=== PATIENT | female | born 1925 | race Caucasian/White ===

== ENCOUNTER 2017-09-24 22:43 | Inpatient (IN) | payer OTHER ==
[~2017-09-24] VITALS: Ht 167.6 cm; Wt 54.2 kg
[2017-09-24 22:43] VITALS: BP_SYST 154
[2017-09-24] MEDS ORDERED: DULR10 RC (23:23)
[2017-09-24] MEDS ORDERED: FURO-149 PO (23:23)
[2017-09-24] MEDS ORDERED: LOSA100T11 PO (23:23)
[2017-09-24] MEDS ORDERED: ONDA4TAB22 PO (23:23)
[2017-09-24] MEDS ORDERED: LEVO100T PO (23:23)
[2017-09-24] MEDS ORDERED: DOCU-144 PO (23:23)
[2017-09-24] MEDS ORDERED: MAGN400O4 PO (23:23)
[2017-09-24] MEDS ORDERED: POTA-118 PO (23:23)
[2017-09-24] MEDS ORDERED: ACET325T53 PO (23:23)
[2017-09-24] MEDS ORDERED: OXYB10TA4 PO (23:23)
[2017-09-24] MEDS ORDERED: NOR10 PO (23:23)
[2017-09-24] MEDS ORDERED: NACL 0.9% 1,000 ML IV ONE (23:29)
[2017-09-24] MEDS ORDERED: ONDANSETRON HCL 4 MG/2 ML VIAL IVP ONE (23:30)
[2017-09-25 00:23] LABS: BASOPHILS % (AUTO) 0.3 % (0.0-2.0); HEMATOCRIT 44.3 % (36-48); HEMOGLOBIN 14.9 g/dL (12.0-16.0); LYMPHOCYTES # (AUTO) 0.4 K/uL (1.0-5.5); LYMPHOCYTES % (AUTO) 4.5 % (20.5-51.5); MEAN CORPUSCULAR HEMOGLOBIN 30 pg (27-31); MEAN CORPUSCULAR HGB CONC 34 % (32-36); MEAN CORPUSCULAR VOLUME 89 fL (79.0-98.0); MONOCYTES # (AUTO) 0.6 K/uL (0.0-1.0); MONOCYTES % (AUTO) 7.7 % (1.7-9.3); NEUTROPHILS # (AUTO) 7.4 K/uL (1.8-7.7); NEUTROPHILS % (AUTO) 87.5 % (40.0-70.0); PLATELET COUNT (AUTO) 202 K/uL (130-430); RED BLOOD CELL COUNT(AUTO) 4.96 MIL/uL (4.2-6.2); RED CELL DISTRIBUTION WIDTH 13.8 % (9.0-15.0); WHITE BLOOD COUNT (AUTO) 8.4 K/uL (4.8-10.8)
[2017-09-25 00:30] LABS: ANION GAP 11 (5-15); CALCIUM 9.4 mg/dL (8.4-11.0); CHLORIDE 93 mmol/L (98-107); CREATININE 0.69 mg/dL (0.55-1.30); GLUCOSE 151 mg/dL (70-99); POTASSIUM 3.5 mmol/L (3.5-5.1); SODIUM SERUM 132 mmol/L (136-145); UREA NITROGEN, BLOOD 17 mg/dL (8-21)
[2017-09-25 00:32] LABS: PROTHROMBIN TIME 9.7 SECS (9.5-12.5)
[2017-09-25 00:37] LABS: ALANINE AMINOTRANSFERASE 13 U/L (12-78); ALBUMIN 3.7 g/dL (3.4-4.8); AMYLASE 79 U/L (0-100); ASPARTATE AMINOTRANSFERASE 16 U/L (10-37); LIPASE 106 U/L (73-393); TOTAL BILIRUBIN 0.4 mg/dL (0.0-1.0)
[2017-09-25 01:19] LABS: BILIRUBIN,URINE NEGATIVE (NEGATIVE); BLOOD, URINE NEGATIVE (NEGATIVE); CLARITY/URINE SL HAZY (CLEAR); COLOR,URINE YELLOW (YELLOW); GLUCOSE,URINE NEGATIVE (NEGATIVE); KETONES,URINE NEGATIVE (NEGATIVE); LEUKOCYTE ESTERASE ,URINE NEGATIVE (NEGATIVE); NITRITE, URINE NEGATIVE (NEGATIVE); PROTEIN URINE NEGATIVE (NEGATIVE); UROBILINOGEN,URINE 0.2 (0.2-1.0)
[2017-09-25] MEDS ORDERED: ONDANSETRON HCL 4 MG/2 ML VIAL IVP ONE (02:00)
[2017-09-25] MEDS ORDERED: NACL 0.9% 1,000 ML IV ONE (02:30)
[2017-09-25] MEDS ORDERED: LABETALOL 100 MG/ 20ML VIAL IVP PRN (02:45)
[2017-09-25] MEDS ORDERED: MORPHINE 2 MG/ML INJ. SYRINGE IVP PRN (02:45)
[2017-09-25 03:20] VITALS: BP_SYST 140
[2017-09-25 03:35] VITALS: BP_SYST 140
[2017-09-25] MEDS ORDERED: LEVOFLOXACIN 500 MG/D5W 100 ML IV ONE (03:57)
[2017-09-25] MEDS ORDERED: metroNIDAZOLE 500 mg/NS 100 ML IV ONE (03:57)
[2017-09-25] MEDS: D5LR 1,000 ML IV SCH ×2 (04:04→14:42)
[2017-09-25] MEDS ORDERED: LEVOFLOXACIN 500 MG/D5W 100 ML IV SCH (05:00)
[2017-09-25] MEDS: metroNIDAZOLE 500 mg/NS 100 ML IV SCH ×3 (05:12→21:51)
[2017-09-25] MEDS ORDERED: LEVOFLOXACIN 250 MG/D5W 50 ML IV ONE (05:32)
[2017-09-25] MEDS: ONDANSETRON HCL 4 MG/2 ML VIAL IVP PRN ×4 (06:32→19:29)
[2017-09-25 07:55] VITALS: BP_SYST 128
[2017-09-25] MEDS ORDERED: ACETAMINOPHEN 650 MG SUPP.RECT RC PRN ×2 (10:45→11:15)
[2017-09-25] MEDS ORDERED: BISACODYL 10 MG/SUPPOSITORY RC PRN (10:45)
[2017-09-25] MEDS ORDERED: BISACODYL 10 MG/SUPPOSITORY RC ONE (10:45)
[2017-09-25] MEDS ORDERED: ACETAMINOPHEN 325 MG TABLET PO PRN (11:15)
[2017-09-25 12:35] VITALS: BP_SYST 130
[2017-09-25] MEDS ORDERED: GASTROGRAFIN 120 ML ONE (13:27)
[2017-09-25 16:35] VITALS: BP_SYST 149
[2017-09-25 20:00] VITALS: BP_SYST 150
[2017-09-25] MEDS: METOCLOPRAMIDE HCL 10 MG/2 ML VIAL IVP PRN (20:25)
[2017-09-26 00:56] VITALS: BP_SYST 139
[2017-09-26] MEDS: D5LR 1,000 ML IV SCH ×2 (03:15→14:56)
[2017-09-26] MEDS ORDERED: LEVOFLOXACIN 250 MG/D5W 50 ML IV SCH (05:00)
[2017-09-26] MEDS: metroNIDAZOLE 500 mg/NS 100 ML IV SCH ×3 (05:58→21:33)
[2017-09-26 06:42] LABS: ALANINE AMINOTRANSFERASE 10 U/L (12-78); ALBUMIN 2.5 g/dL (3.4-4.8); ANION GAP 5 (5-15); ASPARTATE AMINOTRANSFERASE 13 U/L (10-37); CALCIUM 8.3 mg/dL (8.4-11.0); CHLORIDE 106 mmol/L (98-107); CREATININE 0.62 mg/dL (0.55-1.30); GLUCOSE 127 mg/dL (70-99); SODIUM SERUM 138 mmol/L (136-145); TOTAL BILIRUBIN 0.4 mg/dL (0.0-1.0); UREA NITROGEN, BLOOD 13 mg/dL (8-21)
[2017-09-26 07:01] LABS: BASOPHILS % (AUTO) 0.1 % (0.0-2.0); EOSINOPHILS % (AUTO) 0.2 % (0.0-4.0); HEMATOCRIT 34.5 % (36-48); HEMOGLOBIN 11.9 g/dL (12.0-16.0); LYMPHOCYTES # (AUTO) 0.5 K/uL (1.0-5.5); LYMPHOCYTES % (AUTO) 6.6 % (20.5-51.5); MEAN CORPUSCULAR HEMOGLOBIN 31 pg (27-31); MEAN CORPUSCULAR HGB CONC 35 % (32-36); MEAN CORPUSCULAR VOLUME 91 fL (79.0-98.0); MONOCYTES # (AUTO) 0.6 K/uL (0.0-1.0); MONOCYTES % (AUTO) 7.3 % (1.7-9.3); NEUTROPHILS # (AUTO) 6.7 K/uL (1.8-7.7); NEUTROPHILS % (AUTO) 85.8 % (40.0-70.0); PLATELET COUNT (AUTO) 151 K/uL (130-430); WHITE BLOOD COUNT (AUTO) 7.8 K/uL (4.8-10.8)
[2017-09-26 07:02] LABS: POTASSIUM 2.4 mmol/L (3.5-5.1)
[2017-09-26 07:35] VITALS: BP_SYST 134
[2017-09-26] MEDS ORDERED: POTASSIUM CHLORIDE 40 MEQ, LIDOCAINE JECT 2% PF 100 MG 50 MG in NS 250 ML IV ONE ×2 (08:15→12:15)
[2017-09-26] MEDS: LEVOFLOXACIN 250 MG/D5W 50 ML IV SCH (08:19)
[2017-09-26] MEDS ORDERED: PANTOPRAZOLE SODIUM 40 MG/VIAL (PROTONIX) IVP ONE (13:30)
[2017-09-26 14:11] VITALS: BP_SYST 138
[2017-09-26 16:00] VITALS: BP_SYST 133
[2017-09-26 18:23] LABS: ANION GAP 5 (5-15); CALCIUM 8.3 mg/dL (8.4-11.0); CHLORIDE 107 mmol/L (98-107); CREATININE 0.55 mg/dL (0.55-1.30); GLUCOSE 116 mg/dL (70-99); POTASSIUM 3.8 mmol/L (3.5-5.1); SODIUM SERUM 137 mmol/L (136-145); UREA NITROGEN, BLOOD 15 mg/dL (8-21)
[2017-09-26 20:00] VITALS: BP_SYST 132
[2017-09-27 00:49] VITALS: BP_SYST 133
[2017-09-27] MEDS: D5LR 1,000 ML IV SCH ×2 (03:59→16:38)
[2017-09-27] MEDS: metroNIDAZOLE 500 mg/NS 100 ML IV SCH ×3 (05:10→21:14)
[2017-09-27 07:03] LABS: BASOPHILS % (AUTO) 0.4 % (0.0-2.0); EOSINOPHILS % (AUTO) 0.8 % (0.0-4.0); HEMOGLOBIN 12.1 g/dL (12.0-16.0); LYMPHOCYTES # (AUTO) 0.7 K/uL (1.0-5.5); LYMPHOCYTES % (AUTO) 14.2 % (20.5-51.5); MEAN CORPUSCULAR HEMOGLOBIN 31 pg (27-31); MEAN CORPUSCULAR HGB CONC 34 % (32-36); MEAN CORPUSCULAR VOLUME 91 fL (79.0-98.0); MONOCYTES # (AUTO) 0.6 K/uL (0.0-1.0); MONOCYTES % (AUTO) 12.4 % (1.7-9.3); NEUTROPHILS # (AUTO) 3.9 K/uL (1.8-7.7); NEUTROPHILS % (AUTO) 72.2 % (40.0-70.0); PLATELET COUNT (AUTO) 127 K/uL (130-430); RED BLOOD CELL COUNT(AUTO) 3.85 MIL/uL (4.2-6.2); RED CELL DISTRIBUTION WIDTH 13.7 % (9.0-15.0); WHITE BLOOD COUNT (AUTO) 5.2 K/uL (4.8-10.8)
[2017-09-27 07:04] LABS: ANION GAP 9 (5-15); CALCIUM 7.7 mg/dL (8.4-11.0); CHLORIDE 106 mmol/L (98-107); CREATININE 0.43 mg/dL (0.55-1.30); GLUCOSE 91 mg/dL (70-99); SODIUM SERUM 139 mmol/L (136-145); UREA NITROGEN, BLOOD 11 mg/dL (8-21)
[2017-09-27 08:00] VITALS: BP_SYST 130
[2017-09-27] MEDS: PANTOPRAZOLE SODIUM 40 MG/VIAL (PROTONIX) IVP SCH (08:21)
[2017-09-27] MEDS: LEVOFLOXACIN 250 MG/D5W 50 ML IV SCH (08:21)
[2017-09-27 12:00] VITALS: BP_SYST 133
[2017-09-27] MEDS: ONDANSETRON HCL 4 MG/2 ML VIAL IVP PRN (12:00)
[2017-09-27 16:00] VITALS: BP_SYST 131
[2017-09-27] MEDS: METOCLOPRAMIDE HCL 10 MG/2 ML VIAL IVP PRN (16:37)
[2017-09-27] MEDS ORDERED: POTASSIUM CHLORIDE 40 MEQ, LIDOCAINE JECT 2% PF 100 MG 50 MG in NS 250 ML IV ONE (17:00)
[2017-09-27 20:00] VITALS: BP_SYST 140
[2017-09-27] MEDS: MEGESTROL ACETATE 400 MG/10 ML UDC PO SCH (21:13)
[2017-09-28 01:10] VITALS: BP_SYST 123
[2017-09-28] MEDS: D5LR 1,000 ML IV SCH ×2 (05:13→15:57)
[2017-09-28] MEDS: metroNIDAZOLE 500 mg/NS 100 ML IV SCH (05:41)
[2017-09-28 06:25] LABS: BASOPHILS % (AUTO) 0.2 % (0.0-2.0); EOSINOPHILS # (AUTO) 0.1 K/uL (0.0-0.4); EOSINOPHILS % (AUTO) 2.3 % (0.0-4.0); HEMATOCRIT 33.7 % (36-48); HEMOGLOBIN 11.4 g/dL (12.0-16.0); LYMPHOCYTES # (AUTO) 0.7 K/uL (1.0-5.5); LYMPHOCYTES % (AUTO) 11.7 % (20.5-51.5); MEAN CORPUSCULAR HEMOGLOBIN 31 pg (27-31); MEAN CORPUSCULAR HGB CONC 34 % (32-36); MEAN CORPUSCULAR VOLUME 91 fL (79.0-98.0); MONOCYTES # (AUTO) 0.5 K/uL (0.0-1.0); MONOCYTES % (AUTO) 8.4 % (1.7-9.3); NEUTROPHILS # (AUTO) 4.8 K/uL (1.8-7.7); NEUTROPHILS % (AUTO) 77.4 % (40.0-70.0); PLATELET COUNT (AUTO) 137 K/uL (130-430); RED BLOOD CELL COUNT(AUTO) 3.72 MIL/uL (4.2-6.2); RED CELL DISTRIBUTION WIDTH 13.6 % (9.0-15.0); WHITE BLOOD COUNT (AUTO) 6.1 K/uL (4.8-10.8)
[2017-09-28 06:42] LABS: ANION GAP 7 (5-15); CALCIUM 7.5 mg/dL (8.4-11.0); CHLORIDE 104 mmol/L (98-107); CREATININE 0.44 mg/dL (0.55-1.30); GLUCOSE 99 mg/dL (70-99); SODIUM SERUM 136 mmol/L (136-145); UREA NITROGEN, BLOOD 6 mg/dL (8-21)
[2017-09-28 08:00] VITALS: BP_SYST 134
[2017-09-28] MEDS: PANTOPRAZOLE SODIUM 40 MG/VIAL (PROTONIX) IVP SCH (08:51)
[2017-09-28] MEDS: MEGESTROL ACETATE 400 MG/10 ML UDC PO SCH ×2 (08:51→21:16)
[2017-09-28] MEDS: LEVOFLOXACIN 250 MG/D5W 50 ML IV SCH (08:51)
[2017-09-28 11:55] VITALS: BP_SYST 139
[2017-09-28] MEDS ORDERED: POTASSIUM CHLORIDE 40 MEQ, LIDOCAINE JECT 2% PF 100 MG 50 MG in NS 250 ML IV ONE (12:45)
[2017-09-28] MEDS ORDERED: MAGNESIUM SULFATE 4 GM in D5W 250 ML IV ONE (14:00)
[2017-09-28] MEDS ORDERED: CHOLECALCIFEROL (VITAMIN D3) 2,000 UNIT TABLET PO SCH (14:00)
[2017-09-28] MEDS ORDERED: GASTROGRAFIN 120 ML ONE (14:01)
[2017-09-28] MEDS ORDERED: CHOLECALCIFEROL (VITAMIN D3) 2,000 UNIT TABLET PO ONE (14:15)
[2017-09-28 20:19] VITALS: BP_SYST 126
[2017-09-29 00:58] VITALS: BP_SYST 132
[2017-09-29 07:16] LABS: BASOPHILS % (AUTO) 0.1 % (0.0-2.0); EOSINOPHILS # (AUTO) 0.1 K/uL (0.0-0.4); EOSINOPHILS % (AUTO) 2.2 % (0.0-4.0); HEMATOCRIT 34.7 % (36-48); HEMOGLOBIN 11.7 g/dL (12.0-16.0); LYMPHOCYTES # (AUTO) 0.7 K/uL (1.0-5.5); LYMPHOCYTES % (AUTO) 11.1 % (20.5-51.5); MEAN CORPUSCULAR HEMOGLOBIN 30 pg (27-31); MEAN CORPUSCULAR HGB CONC 34 % (32-36); MEAN CORPUSCULAR VOLUME 89 fL (79.0-98.0); MONOCYTES # (AUTO) 0.8 K/uL (0.0-1.0); MONOCYTES % (AUTO) 12.9 % (1.7-9.3); NEUTROPHILS # (AUTO) 4.4 K/uL (1.8-7.7); NEUTROPHILS % (AUTO) 73.7 % (40.0-70.0); PLATELET COUNT (AUTO) 155 K/uL (130-430); RED BLOOD CELL COUNT(AUTO) 3.91 MIL/uL (4.2-6.2); RED CELL DISTRIBUTION WIDTH 13.7 % (9.0-15.0)
[2017-09-29 07:39] LABS: ANION GAP 6 (5-15); CHLORIDE 109 mmol/L (98-107); CREATININE 0.41 mg/dL (0.55-1.30); GLUCOSE 93 mg/dL (70-99); POTASSIUM 3.1 mmol/L (3.5-5.1); SODIUM SERUM 140 mmol/L (136-145); UREA NITROGEN, BLOOD 5 mg/dL (8-21)
[2017-09-29 07:51] LABS: CALCIUM 6.9 mg/dL (8.4-11.0)
[2017-09-29 08:00] VITALS: BP_SYST 144
[2017-09-29] MEDS: MEGESTROL ACETATE 400 MG/10 ML UDC PO SCH ×2 (08:08→20:51)
[2017-09-29] MEDS: CHOLECALCIFEROL (VITAMIN D3) 2,000 UNIT TABLET PO SCH (08:08)
[2017-09-29] MEDS: PANTOPRAZOLE SODIUM 40 MG/VIAL (PROTONIX) IVP SCH (08:08)
[2017-09-29] MEDS: D5LR 1,000 ML IV SCH ×2 (09:30→23:32)
[2017-09-29] MEDS ORDERED: CALCIUM CARBONATE 500 MG/ TAB.CHEW PO PRN (12:00)
[2017-09-29] MEDS ORDERED: MAGNESIUM OXIDE 400 MG TABLET PO ONE (12:00)
[2017-09-29] MEDS ORDERED: POTASSIUM CHLORIDE 20 MEQ TAB.PRT.SR PO ONE (12:00)
[2017-09-29] MEDS ORDERED: CHOLECALCIFEROL (VITAMIN D3) 2,000 UNIT TABLET PO SCH (12:00)
[2017-09-29 12:25] VITALS: BP_SYST 135
[2017-09-29 16:30] VITALS: BP_SYST 133
[2017-09-29 17:15] LABS: BILIRUBIN,URINE NEGATIVE (NEGATIVE); BLOOD, URINE NEGATIVE (NEGATIVE); CLARITY/URINE CLEAR (CLEAR); COLOR,URINE YELLOW (YELLOW); GLUCOSE,URINE NEGATIVE (NEGATIVE); KETONES,URINE NEGATIVE (NEGATIVE); LEUKOCYTE ESTERASE ,URINE NEGATIVE (NEGATIVE); NITRITE, URINE NEGATIVE (NEGATIVE); PROTEIN URINE NEGATIVE (NEGATIVE); UROBILINOGEN,URINE 0.2 (0.2-1.0)
[2017-09-29 18:31] LABS: RBC,URINE 0-3 /HPF (0-3)
[2017-09-29 18:32] LABS: BACTERIA,URINE MODERATE /HPF (None Seen); MUCUS,URINE None Seen /LPF (None Seen)
[2017-09-29 20:00] VITALS: BP_SYST 123
[2017-09-29] MEDS: POTASSIUM CHLORIDE 20 MEQ TAB.PRT.SR PO SCH (20:51)
[2017-09-29] MEDS: MAGNESIUM OXIDE 400 MG TABLET PO SCH (20:51)
[2017-09-30 01:09] VITALS: BP_SYST 127
[2017-09-30 06:22] LABS: BASOPHILS % (AUTO) 0.4 % (0.0-2.0); EOSINOPHILS # (AUTO) 0.1 K/uL (0.0-0.4); EOSINOPHILS % (AUTO) 2.4 % (0.0-4.0); HEMATOCRIT 33.8 % (36-48); HEMOGLOBIN 11.7 g/dL (12.0-16.0); LYMPHOCYTES # (AUTO) 0.6 K/uL (1.0-5.5); LYMPHOCYTES % (AUTO) 13.1 % (20.5-51.5); MEAN CORPUSCULAR HEMOGLOBIN 31 pg (27-31); MEAN CORPUSCULAR HGB CONC 35 % (32-36); MEAN CORPUSCULAR VOLUME 89 fL (79.0-98.0); MONOCYTES # (AUTO) 0.6 K/uL (0.0-1.0); MONOCYTES % (AUTO) 12.5 % (1.7-9.3); NEUTROPHILS # (AUTO) 3.5 K/uL (1.8-7.7); NEUTROPHILS % (AUTO) 71.6 % (40.0-70.0); PLATELET COUNT (AUTO) 155 K/uL (130-430); RED BLOOD CELL COUNT(AUTO) 3.78 MIL/uL (4.2-6.2); RED CELL DISTRIBUTION WIDTH 13.8 % (9.0-15.0); WHITE BLOOD COUNT (AUTO) 4.8 K/uL (4.8-10.8)
[2017-09-30 06:29] LABS: ALANINE AMINOTRANSFERASE 8 U/L (12-78); ALBUMIN 1.9 g/dL (3.4-4.8); ANION GAP 4 (5-15); ASPARTATE AMINOTRANSFERASE 12 U/L (10-37); CALCIUM 7.7 mg/dL (8.4-11.0); CHLORIDE 104 mmol/L (98-107); CREATININE 0.44 mg/dL (0.55-1.30); GLUCOSE 106 mg/dL (70-99); POTASSIUM 4.4 mmol/L (3.5-5.1); SODIUM SERUM 132 mmol/L (136-145); TOTAL BILIRUBIN 0.2 mg/dL (0.0-1.0); UREA NITROGEN, BLOOD 10 mg/dL (8-21)
[2017-09-30] MEDS: MEGESTROL ACETATE 400 MG/10 ML UDC PO SCH ×2 (09:51→20:41)
[2017-09-30] MEDS: PANTOPRAZOLE SODIUM 40 MG/VIAL (PROTONIX) IVP SCH (09:51)
[2017-09-30] MEDS: POTASSIUM CHLORIDE 20 MEQ TAB.PRT.SR PO SCH ×2 (09:52→20:41)
[2017-09-30] MEDS: CHOLECALCIFEROL (VITAMIN D3) 2,000 UNIT TABLET PO SCH (09:52)
[2017-09-30] MEDS: MAGNESIUM OXIDE 400 MG TABLET PO SCH ×2 (09:52→20:41)
[2017-09-30] MEDS: D5LR 1,000 ML IV SCH ×2 (09:58→09:59)
[2017-09-30] MEDS ORDERED: LEVOFLOXACIN 250 MG/D5W 50 ML IV ONE (11:30)
[2017-09-30 12:47] VITALS: BP_SYST 133
[2017-09-30 16:24] VITALS: BP_SYST 143
[2017-09-30 20:00] VITALS: BP_SYST 132
[2017-10-01 00:34] VITALS: BP_SYST 137
[2017-10-01] MEDS: D5LR 1,000 ML IV SCH ×2 (02:01→19:52)
[2017-10-01 08:00] VITALS: BP_SYST 129
[2017-10-01] MEDS: MEGESTROL ACETATE 400 MG/10 ML UDC PO SCH ×2 (09:56→21:31)
[2017-10-01] MEDS: PANTOPRAZOLE SODIUM 40 MG/VIAL (PROTONIX) IVP SCH (09:56)
[2017-10-01] MEDS: POTASSIUM CHLORIDE 20 MEQ TAB.PRT.SR PO SCH ×2 (09:56→21:39)
[2017-10-01] MEDS: LEVOFLOXACIN 250 MG/D5W 50 ML IV SCH (09:56)
[2017-10-01] MEDS: CHOLECALCIFEROL (VITAMIN D3) 2,000 UNIT TABLET PO SCH (09:57)
[2017-10-01] MEDS: MAGNESIUM OXIDE 400 MG TABLET PO SCH ×2 (09:57→21:31)
[2017-10-01 12:47] VITALS: BP_SYST 124
[2017-10-01 16:49] VITALS: BP_SYST 120
[2017-10-01 19:00] VITALS: BP_SYST 143
[2017-10-01 20:00] VITALS: BP_SYST 143
[2017-10-02] VITALS: BP_SYST 134
[2017-10-02] MEDS: D5LR 1,000 ML IV SCH ×2 (06:07→23:00)
[2017-10-02 06:58] LABS: ANION GAP 8 (5-15); CALCIUM 8.4 mg/dL (8.4-11.0); CHLORIDE 100 mmol/L (98-107); CREATININE 0.54 mg/dL (0.55-1.30); GLUCOSE 94 mg/dL (70-99); POTASSIUM 4.6 mmol/L (3.5-5.1); SODIUM SERUM 130 mmol/L (136-145); UREA NITROGEN, BLOOD 17 mg/dL (8-21)
[2017-10-02 08:00] VITALS: BP_SYST 125
[2017-10-02] MEDS: CHOLECALCIFEROL (VITAMIN D3) 2,000 UNIT TABLET PO SCH (09:59)
[2017-10-02] MEDS: POTASSIUM CHLORIDE 20 MEQ TAB.PRT.SR PO SCH ×2 (09:59→22:07)
[2017-10-02] MEDS: LEVOFLOXACIN 250 MG/D5W 50 ML IV SCH (10:00)
[2017-10-02] MEDS: MEGESTROL ACETATE 400 MG/10 ML UDC PO SCH ×2 (10:00→22:06)
[2017-10-02] MEDS: MAGNESIUM OXIDE 400 MG TABLET PO SCH ×2 (10:00→22:07)
[2017-10-02] MEDS: PANTOPRAZOLE SODIUM 40 MG/VIAL (PROTONIX) IVP SCH (10:00)
[2017-10-02 12:15] VITALS: BP_SYST 129
[2017-10-02 16:15] VITALS: BP_SYST 122
[2017-10-03] VITALS: BP_SYST 119
[2017-10-03 05:38] VITALS: BP_SYST 123
[2017-10-03 08:00] VITALS: BP_SYST 143
[2017-10-03] MEDS: LEVOFLOXACIN 250 MG/D5W 50 ML IV SCH (09:21)
[2017-10-03] MEDS: PANTOPRAZOLE SODIUM 40 MG/VIAL (PROTONIX) IVP SCH (09:22)
[2017-10-03] MEDS: CHOLECALCIFEROL (VITAMIN D3) 2,000 UNIT TABLET PO SCH (09:22)
[2017-10-03] MEDS: POTASSIUM CHLORIDE 20 MEQ TAB.PRT.SR PO SCH ×2 (09:22→20:26)
[2017-10-03] MEDS: MEGESTROL ACETATE 400 MG/10 ML UDC PO SCH ×2 (09:22→20:25)
[2017-10-03] MEDS: MAGNESIUM OXIDE 400 MG TABLET PO SCH ×2 (09:22→20:26)
[2017-10-03 11:49] VITALS: BP_SYST 135
[2017-10-03 16:00] VITALS: BP_SYST 128
[2017-10-03] MEDS: D5LR 1,000 ML IV SCH (17:37)
[2017-10-04 02:14] VITALS: BP_SYST 119
[2017-10-04] MEDS: PANTOPRAZOLE SODIUM 40 MG/VIAL (PROTONIX) IVP SCH (09:21)
[2017-10-04] MEDS: MAGNESIUM OXIDE 400 MG TABLET PO SCH ×2 (09:21→20:22)
[2017-10-04] MEDS: POTASSIUM CHLORIDE 20 MEQ TAB.PRT.SR PO SCH ×2 (09:21→20:22)
[2017-10-04] MEDS: CHOLECALCIFEROL (VITAMIN D3) 2,000 UNIT TABLET PO SCH (09:21)
[2017-10-04] MEDS: LEVOFLOXACIN 250 MG/D5W 50 ML IV SCH (09:21)
[2017-10-04] MEDS: MEGESTROL ACETATE 400 MG/10 ML UDC PO SCH ×2 (09:22→20:22)
[2017-10-04] MEDS: D5LR 1,000 ML IV SCH (11:58)
[2017-10-04 12:42] VITALS: BP_SYST 128
[2017-10-04 16:10] VITALS: BP_SYST 121
[2017-10-04 20:05] VITALS: BP_SYST 126
[2017-10-05 00:51] VITALS: BP_SYST 135
[2017-10-05] MEDS: D5LR 1,000 ML IV SCH ×2 (03:50→21:40)
[2017-10-05 08:10] VITALS: BP_SYST 128
[2017-10-05] MEDS: LEVOFLOXACIN 250 MG/D5W 50 ML IV SCH (10:01)
[2017-10-05] MEDS: POTASSIUM CHLORIDE 20 MEQ TAB.PRT.SR PO SCH ×2 (10:01→20:26)
[2017-10-05] MEDS: CHOLECALCIFEROL (VITAMIN D3) 2,000 UNIT TABLET PO SCH (10:01)
[2017-10-05] MEDS: MAGNESIUM OXIDE 400 MG TABLET PO SCH ×2 (10:01→20:26)
[2017-10-05] MEDS: PANTOPRAZOLE SODIUM 40 MG/VIAL (PROTONIX) IVP SCH (10:02)
[2017-10-05] MEDS: MEGESTROL ACETATE 400 MG/10 ML UDC PO SCH ×2 (10:02→20:26)
[2017-10-05 12:35] VITALS: BP_SYST 123
[2017-10-05] MEDS: ONDANSETRON HCL 4 MG/2 ML VIAL IVP PRN (14:43)
[2017-10-05 16:40] VITALS: BP_SYST 118
[2017-10-05] MEDS: METOCLOPRAMIDE HCL 10 MG/2 ML VIAL IVP PRN (18:39)
[2017-10-05 20:05] VITALS: BP_SYST 111
[2017-10-06 00:54] VITALS: BP_SYST 134
[2017-10-06 08:00] VITALS: BP_SYST 146
[2017-10-06] MEDS: LEVOFLOXACIN 250 MG/D5W 50 ML IV SCH (09:56)
[2017-10-06] MEDS: CHOLECALCIFEROL (VITAMIN D3) 2,000 UNIT TABLET PO SCH (09:57)
[2017-10-06] MEDS: PANTOPRAZOLE SODIUM 40 MG/VIAL (PROTONIX) IVP SCH (09:57)
[2017-10-06] MEDS: MAGNESIUM OXIDE 400 MG TABLET PO SCH (09:57)
[2017-10-06] MEDS: ONDANSETRON HCL 4 MG/2 ML VIAL IVP PRN ×2 (09:57→14:23)
[2017-10-06] MEDS: POTASSIUM CHLORIDE 20 MEQ TAB.PRT.SR PO SCH (09:57)
[2017-10-06] MEDS: MEGESTROL ACETATE 400 MG/10 ML UDC PO SCH (09:57)
[2017-10-06 12:10] VITALS: BP_SYST 125
[2017-10-06 13:18] LABS: BASOPHILS # (AUTO) 0.1 K/uL (0.0-0.2); BASOPHILS % (AUTO) 0.7 % (0.0-2.0); EOSINOPHILS % (AUTO) 0.6 % (0.0-4.0); HEMATOCRIT 41.2 % (36-48); HEMOGLOBIN 13.6 g/dL (12.0-16.0); LYMPHOCYTES % (AUTO) 13.5 % (20.5-51.5); MEAN CORPUSCULAR HEMOGLOBIN 30 pg (27-31); MEAN CORPUSCULAR HGB CONC 33 % (32-36); MEAN CORPUSCULAR VOLUME 91 fL (79.0-98.0); MONOCYTES # (AUTO) 0.9 K/uL (0.0-1.0); MONOCYTES % (AUTO) 11.4 % (1.7-9.3); NEUTROPHILS # (AUTO) 5.6 K/uL (1.8-7.7); NEUTROPHILS % (AUTO) 73.8 % (40.0-70.0); PLATELET COUNT (AUTO) 283 K/uL (130-430); RED BLOOD CELL COUNT(AUTO) 4.55 MIL/uL (4.2-6.2); RED CELL DISTRIBUTION WIDTH 14.8 % (9.0-15.0); WHITE BLOOD COUNT (AUTO) 7.6 K/uL (4.8-10.8)
[2017-10-06 13:21] LABS: ANION GAP 11 (5-15); CALCIUM 8.5 mg/dL (8.4-11.0); CHLORIDE 101 mmol/L (98-107); CREATININE 0.53 mg/dL (0.55-1.30); GLUCOSE 102 mg/dL (70-99); POTASSIUM 4.7 mmol/L (3.5-5.1); SODIUM SERUM 130 mmol/L (136-145); UREA NITROGEN, BLOOD 21 mg/dL (8-21)
[2017-10-06 13:26] LABS: ALANINE AMINOTRANSFERASE 14 U/L (12-78); ALBUMIN 2.6 g/dL (3.4-4.8); ASPARTATE AMINOTRANSFERASE 15 U/L (10-37); TOTAL BILIRUBIN 0.2 mg/dL (0.0-1.0)
[2017-10-06 16:38] VITALS: BP_SYST 121
[2017-10-06 18:42] VITALS: BP_SYST 121
[2017-10-06] MEDS ORDERED: POTASSIUM CHLORIDE 20 MEQ TAB.PRT.SR PO SCH (21:00)
[2017-10-07] MEDS ORDERED: PANTOPRAZOLE SODIUM 40 MG TAB PO SCH (09:00)
== END 2017-10-06 19:20 | disposition home health service (06) | DRG 388 ==
LOC: SED 22:43 → STU 09-25 02:45 → SMU 09-28 12:48
PROVIDERS: ADMIT Internal Medicine; ATTEND Internal Medicine
DX: K56.609 Unspecified intestinal obstruction, unspecified as to partial versus complete obstruction (principal); E43 Unspecified severe protein-calorie malnutrition; E87.1 Hypo-osmolality and hyponatremia; Z68.1 Body mass index [BMI] 19.9 or less, adult; G31.84 Mild cognitive impairment of uncertain or unknown etiology; I11.0 Hypertensive heart disease with heart failure; F44.4 Conversion disorder with motor symptom or deficit; E83.51 Hypocalcemia; E87.6 Hypokalemia; E83.42 Hypomagnesemia; Z96.649 Presence of unspecified artificial hip joint; I50.9 Heart failure, unspecified; E03.9 Hypothyroidism, unspecified; Z88.0 Allergy status to penicillin; Z88.6 Allergy status to analgesic agent; Z88.5 Allergy status to narcotic agent; Z90.49 Acquired absence of other specified parts of digestive tract; Z79.899 Other long term (current) drug therapy
CPT/HCPCS: 36415; 71045; 71250-TC; 74250-TC; 80048; 80053; 81000-TC; 81003; 82150-TC; 83605; 83690-TC; 83735-TC; 84484; 85025; 85610-TC; 85730-TC; 87040-TC; 87086; 93005; 96361; 96374; 96376; 97110-GP; 97530-GP; 99285; C9113; J1956; J2405; J2765; J3475; J3480; J3490; J7030; J7050; J7060; J7120; Q9963